=== PATIENT | male | born 1985 | race Caucasian/White ===

== ENCOUNTER 2020-10-26 13:18 | Emergency (ER) | payer SELFPAY ==
[~2020-10-26] VITALS: Ht 167.6 cm; Wt 72.6 kg
[2020-10-26 15:21] LABS: HEMATOCRIT 49.1 % (36.7-47.1); MEAN CORPUSCULAR HEMOGLOBIN 27.4 uug (23.8-33.4); MEAN CORPUSCULAR VOLUME 83.3 fL (73.0-96.2); PLATELET COUNT (AUTO) 221 K/uL (152-348)
[2020-10-26 15:29] LABS: CREATININE 0.8 mg/dL (0.6-1.3); POTASSIUM 4.1 mmol/L (3.5-5.1)
[2020-10-26 15:41] LABS: BILIRUBIN,DIRECT 0.1 mg/dL (0.0-0.2); BILIRUBIN,TOTAL 0.4 mg/dL (0.2-1.0)
--- NOTE | 2020-10-26 17:10 | NUR ---
Patient is resting comfortably in bed with eyes closed, NAD noted.
[2020-10-26] MEDS ORDERED: IV NORMAL SALINE 1000 ML BAG IV ONE (17:15)
[2020-10-26] MEDS ORDERED: METOCLOPRAMIDE HCL 10 MG/2 ML VIAL IV ONE (17:15)
[2020-10-26] MEDS ORDERED: KETOROLAC TROMETHAMINE 30 MG INJ IVP ONE (17:15)
[2020-10-26] MEDS ORDERED: KETOROLAC TROMETHAMINE 30 MG INJ ONE (17:21)
[2020-10-26] MEDS ORDERED: METOCLOPRAMIDE HCL 10 MG/2 ML VIAL ONE (17:21)
[2020-10-26] MEDS ORDERED: METO-295 PO (18:22)
[2020-10-26] MEDS ORDERED: IBUP-1957 PO (18:22)
[2020-10-26] MEDS ORDERED: AZIT500T2 PO (18:22)
[2020-10-26 19:08] VITALS: BP 120/58
--- NOTE | 2020-10-26 19:08 | NUR ---
IV removed. Catheter intact and site benign. Pressure and 4x4 gauze applied to site. No bleeding noted.
--- NOTE | 2020-10-26 19:09 | NUR ---
Patient discharged to home in stable condition. Written and verbal after care instructions given. Patient verbalizes understanding of instructions. Stressed follow up or return to ER for worsening s/s.
== END 2020-10-26 19:09 | disposition home or self-care (01) ==
LOC: ER 13:18
DX: A04.9 Bacterial intestinal infection, unspecified (principal); Z20.822 Contact with and (suspected) exposure to COVID-19
CPT/HCPCS: 36415; 71045; 80048; 80076; 83605; 83880; 84484; 85025; 87040 ×2; 87426; 96361; 96374; 96375; 99284; J1885; J2765; U0003; 70030-TC; A4663; J7030